=== PATIENT | male | born 1945 | race Caucasian/White ===

== ENCOUNTER 2018-01-27 17:47 | Inpatient (IN) | payer OTHER, MEDICAID ==
[~2018-01-27] VITALS: Ht 165.1 cm; Wt 83.9 kg
[2018-01-27 18:00] VITALS: BP 144/92
--- NOTE | 2018-01-27 19:06 | NUR ---
PT BROUGHT TO ED BED 6
[2018-01-27] MEDS ORDERED: fentaNYL 0.05 MG/ML VIAL IVP ONE (19:25)
[2018-01-27] MEDS ORDERED: METOCLOPRAMIDE 10 MG/2 ML INJ VIAL IVP ONE (19:25)
--- NOTE | 2018-01-27 19:27 | NUR ---
PT ADMITS N/V TODAY; SKIN IS INTACT, PINK/WARM/DRY; AAOX4, PERRL, WITH EVEN AND STEADY GAIT; LUNGS CLEAR BL, BREATHING UNLABORED; HR EVEN AND REGULAR, BL PERIPHERAL PULSES PRESENT; BS ACTIVE X4, TENDER IN LUQ TO PALPATION, NO HEPATOSPLENOMEGALLY PALPATED, RESONANT TO PERCUSSION; PT DENIES ANY FEVER, CP, SOB, OR COUGH AT THIS TIME; PT STATES 8/10 ABD PAIN AT THIS TIME; VSS; PATIENT POSITIONED FOR COMFORT; HOB ELEVATED; BEDRAILS UP X2; BED DOWN.
--- NOTE | 2018-01-27 19:48 | NUR ---
Ultrasound at bedside.
[2018-01-27 19:57] LABS: BASOPHILS # (AUTO) 0.1 K/uL (0.00-0.22); BASOPHILS % (AUTO) 1.1 % (0.0-2.0); EOSINOPHILS # (AUTO) 0.2 K/uL (0-0.4); EOSINOPHILS % (AUTO) 2.8 % (0.0-4.0); HEMATOCRIT 36.5 % (36-52); HEMOGLOBIN 11.9 g/dL (12.0-18.0); LYMPHOCYTES # (AUTO) 1.5 K/uL (2.0-11.5); MEAN CORPUSCULAR HEMOGLOBIN 30 pg (27-31); MEAN CORPUSCULAR HGB CONC 33 g/dL (33-37); MEAN CORPUSCULAR VOLUME 91.4 fL (80-94); MONOCYTES # (AUTO) 0.8 K/uL (0.8-1.0); MONOCYTES % (AUTO) 10.7 % (1.7-9.3); NEUTROPHILS # (AUTO) 4.9 K/uL (1.8-7.7); NEUTROPHILS % (AUTO) 65.4 % (42.2-75.2); PLATELET COUNT (AUTO) 219 K/uL (140-450); RED CELL DISTRIBUTION WIDTH 14.8 % (11.6-13.7); WHITE BLOOD COUNT (AUTO) 7.5 K/uL (4.8-10.8)
--- NOTE | 2018-01-27 19:59 | NUR ---
US TECH AT BEDSIDE
[2018-01-27 20:04] LABS: BILIRUBIN,URINE NEGATIVE (NEGATIVE); BLOOD, URINE NEGATIVE (NEGATIVE); LEUKOCYTE ESTERASE ,URINE NEGATIVE (NEGATIVE); NITRITE, URINE NEGATIVE (NEGATIVE); PH,URINE 7.5 (5.0-9.0); UGLUCOSE NEGATIVE (NEGATIVE)
[2018-01-27 20:05] LABS: APPEARANCE,URINE CLEAR (CLEAR); COLOR,URINE YELLOW (YELLOW)
[2018-01-27 20:20] LABS: ALBUMIN 3.4 g/dL (3.4-5.0); ANION GAP 10.2 (8-16); ASPARTATE AMINOTRANSFERASE 18 U/L (15-37); CARBON DIOXIDE 31.3 mmol/L (21-32); CHLORIDE 100 mmol/L (98-107); GLUCOSE 112 mg/dL (74-106); LIPASE 96 U/L (73-393); POTASSIUM 4.5 mmol/L (3.5-5.1); SODIUM SERUM 137 mmol/L (136-145); TOTAL BILIRUBIN 0.3 mg/dL (0.0-1.0); UREA NITROGEN, BLOOD 51 mg/dL (7-18)
[2018-01-27 20:23] LABS: CREATININE 4.6 mg/dL (0.7-1.3)
--- NOTE | 2018-01-27 20:39 | NUR ---
Dr. Stanford evaluating patient at bedside.
[2018-01-27] MEDS ORDERED: ENALAPRILAT 2.5 MG/2 ML VIAL IVP ONE (21:20)
[2018-01-27] MEDS ORDERED: MORPHINE SULFATE 4 MG/ML SYR IVP ONE (21:20)
--- NOTE | 2018-01-27 21:27 | NUR ---
medicated as per ermds order, patient tolerated well.
--- NOTE | 2018-01-27 22:49 | NUR ---
PT AMB TI BRP WITH AT SIDE. PT CONT AAOX4 AT THIS TIME
--- NOTE | 2018-01-28 00:22 | NUR ---
Patient appears to be resting comfortably in bed. Vital Signs within normal limits. Respirations even and unlabored.
[2018-01-28] MEDS ORDERED: hydrALAZINE 20 MG/ML VIAL IVP ONE (02:00)
--- NOTE | 2018-01-28 02:00 | NUR ---
ALL RESULTS BACK AND NOTED BY ERMD , AND FOR ADMISSION
[2018-01-28] MEDS ORDERED: MORPHINE SULFATE 4 MG/ML SYR IVP PRN (02:05)
[2018-01-28] MEDS ORDERED: MORPHINE SULFATE 2 MG/ML SYR IVP PRN (02:05)
[2018-01-28] MEDS ORDERED: HYDROcodone/APAP 5/325 MG 1 TAB TAB PO PRN (02:05)
[2018-01-28] MEDS ORDERED: ALBUTEROL 0.083% 2.5 MG/3 ML NEBU INH PRN (02:05)
[2018-01-28] MEDS ORDERED: hydrALAZINE 20 MG/ML VIAL IVP PRN ×2 (02:05→10:41)
[2018-01-28] MEDS ORDERED: cloNIDine 0.1 MG TAB PO PRN ×2 (02:05→10:40)
[2018-01-28] MEDS: NACL 0.9% 1,000 ML IV SCH ×2 (02:05→15:11)
--- NOTE | 2018-01-28 02:15 | NUR ---
Patient will be admitted to care of DR ROMERO. Admited to TELEMETRY. Will go to room ICU 1 Belongings list completed.
[2018-01-28] MEDS ORDERED: LOSA50TA39 PO (02:16)
[2018-01-28] MEDS ORDERED: ASPI81CT89 PO (02:16)
[2018-01-28] MEDS ORDERED: HUM7525 SUBQ (02:16)
[2018-01-28] MEDS ORDERED: GABA300C PO (02:16)
[2018-01-28] MEDS ORDERED: AMLO10TA PO (02:16)
[2018-01-28] MEDS ORDERED: SYN.075 PO (02:16)
[2018-01-28] MEDS ORDERED: ATOR20TA PO (02:16)
[2018-01-28] MEDS ORDERED: METO-485 PO (02:16)
[2018-01-28] MEDS ORDERED: FURO-570 PO (02:16)
[2018-01-28] MEDS ORDERED: CARV25TA PO (02:16)
[2018-01-28] MEDS ORDERED: DEXTROSE 50% 50 ML SYR IVP PRN (02:20)
[2018-01-28] MEDS ORDERED: INSULIN LISPRO SLIDING SCALE 100 UNITS/ML VIAL SUBQ PRN (02:20)
[2018-01-28 03:00] VITALS: BP 152/93
--- NOTE | 2018-01-28 03:00 | NUR ---
RECEIVED PT FROM ED STAFF. NO ACUTE DISTRESS NOTD
--- NOTE | 2018-01-28 03:15 | NUR ---
PT AWAKE SITTING UP IN BED WALLISIAN SPEAKING, @ BEDSIDE. PT STATES HE HAS LITTLE TO NO VISION IN R EYE, LEFT EYE 50% FUNCTION PER PATIENT. PT AMB TO BED FROM GURNEY, STEADY GAIT. LUNGS CLEAR TO AUSCULTATION. NSR 90S, +1-2 EDEMA NOTED TO BILATERAL ANKLES. ABD SOFT TENDER TO TOUCH. PT DENIES N/V @ THIS TIME. VOIDS IN URINAL. IV SITE TO L AC WITH IVF RUNNING @ 75ML/HR. NO SKIN BREAKDOWN NOTED. WILL CONTINUE TO OBSERVE.
[2018-01-28 04:00] VITALS: BP 157/92
--- NOTE | 2018-01-28 04:00 | NUR ---
PT DENIES PAIN, NAUSEA VOMITING @ THIS TIME.
[2018-01-28] MEDS ORDERED: cefTRIAXone 1,000 MG VIAL ONE (04:25)
[2018-01-28] MEDS: BLOOD GLUCOSE MONITORING 1 DEV DEV FS SCH ×4 (07:27→20:41)
--- NOTE | 2018-01-28 07:28 | NUR ---
RECEIVED REPORT FROM EDI LAO. PT AWAKE IN BED, A&0X4. PT IS ABLE TO MOVE ALL EXTREMITIES AND ABLE TO AMBULATE WITHOUT ASSISTANCE. PERRLA. LUNG SOUNDS ARE CLEAR BILATERALLY; PT IS ON ROOM AIR. PT IS NPO; BOWEL SOUNDS PRESENT AND ACTIVE IN ALL 4 QUADRANTS. PT HAS LEFT AC 20 JOANNE; 75ML/HR NS RUNNING; IV FLUSHES, PATENT, ASYMPTOMATIC. PT IS ON VICTIM ADVOCATE; NORMAL SINUS RHYTHM. PT HAS CALL LIGHT IN HIS HAND; BED IS LOCKED, IN LOWEST POSITION AND ALARM IS ON.
--- NOTE | 2018-01-28 07:28 | NUR ---
ENDORSED CARE TO DAY SHIFT FOR CONTINUITY OF CARE.
[2018-01-28] MEDS: ONDANSETRON 4 MG/2 ML VIAL IVP PRN ×3 (07:39→19:18)
[2018-01-28] MEDS: ACETAMINOPHEN 325 MG TAB PO PRN ×2 (07:41→16:15)
[2018-01-28 08:00] VITALS: BP 147/94
--- NOTE | 2018-01-28 08:50 | NUR ---
PT REQUESTED FOR SCDS TO BE TAKEN OFF
--- NOTE | 2018-01-28 09:01 | NUR ---
DR. ROMERO AT BEDSIDE ASSESSING PT. PT UPDATE GIVEN AND ORDERS RECEIVED.
--- NOTE | 2018-01-28 09:47 | NUR ---
CALLED DR. FORMAN TO NOTIFY HIM OF CONSULTATION
--- NOTE | 2018-01-28 09:48 | NUR ---
PAGED DR GILL TO NOTIFY HIM OF CONSULTATION
--- NOTE | 2018-01-28 10:00 | NUR ---
PT'S , NATHALIA, AT BEDSIDE.
--- NOTE | 2018-01-28 10:52 | NUR ---
FLORIN FROM LAB HERE FOR DAILY CBC, CMP, INR
--- NOTE | 2018-01-28 10:55 | NUR ---
PATIENT HAS BEEN SCREENED AND CATEGORIZED HIGH NUTRITION RISK. PATIENT WILL BE SEEN WITHIN 1-2 DAYS OF ADMISSION. 01/28/18 01/29/[address]
[2018-01-28 11:07] LABS: BASOPHILS # (AUTO) 0.1 K/uL (0.00-0.22); BASOPHILS % (AUTO) 0.9 % (0.0-2.0); EOSINOPHILS # (AUTO) 0.1 K/uL (0-0.4); EOSINOPHILS % (AUTO) 1.7 % (0.0-4.0); HEMATOCRIT 37.9 % (36-52); HEMOGLOBIN 12.5 g/dL (12.0-18.0); LYMPHOCYTES # (AUTO) 1.1 K/uL (2.0-11.5); LYMPHOCYTES % (AUTO) 15.1 % (20.5-51.1); MEAN CORPUSCULAR HEMOGLOBIN 30 pg (27-31); MEAN CORPUSCULAR HGB CONC 33 g/dL (33-37); MEAN CORPUSCULAR VOLUME 90.6 fL (80-94); MONOCYTES # (AUTO) 0.6 K/uL (0.8-1.0); MONOCYTES % (AUTO) 8.9 % (1.7-9.3); NEUTROPHILS # (AUTO) 5.2 K/uL (1.8-7.7); NEUTROPHILS % (AUTO) 73.4 % (42.2-75.2); PLATELET COUNT (AUTO) 228 K/uL (140-450); RED BLOOD CELL COUNT(AUTO) 4.18 MIL/uL (4.20-6.10); RED CELL DISTRIBUTION WIDTH 14.6 % (11.6-13.7)
[2018-01-28 11:34] LABS: ALBUMIN 3.3 g/dL (3.4-5.0); ANION GAP 14.1 (8-16); ASPARTATE AMINOTRANSFERASE 18 U/L (15-37); CARBON DIOXIDE 26.1 mmol/L (21-32); CHLORIDE 101 mmol/L (98-107); GLUCOSE 154 mg/dL (74-106); POTASSIUM 4.2 mmol/L (3.5-5.1); PROTHROMBIN TIME 10.4 secs (10.8-13.4); SODIUM SERUM 137 mmol/L (136-145); TOTAL BILIRUBIN 0.3 mg/dL (0.0-1.0); UREA NITROGEN, BLOOD 45 mg/dL (7-18)
[2018-01-28 11:37] LABS: CREATININE 4.3 mg/dL (0.7-1.3)
[2018-01-28 12:00] VITALS: BP 154/82
--- NOTE | 2018-01-28 12:45 | NUR ---
DR. CRUMP AT BEDSIDE EVALUATING PT.
--- NOTE | 2018-01-28 12:50 | NUR ---
Dr. Solorio has changed the nephrology consult to Dr. Krishna's office ([facility]). The pt primary Gasser Machine Operator is Dr. Painter who is in [facility]. Dr. Conde is electronic bench technician today and will see the patient
--- NOTE | 2018-01-28 12:57 | NUR ---
NUCLEAR MED HERE TO EVALUATE AND ASSESS PT. SHE WILL COME BACK IN 15 MINS TO SOFTWARE QUALITY ASSURANCE SPECIALIST PT
--- NOTE | 2018-01-28 15:02 | NUR ---
FAXED INITIAL REVIEW TO [facility] [phone] PHONE PITER [phone]
--- NOTE | 2018-01-28 15:40 | NUR ---
PT BACK FROM NUCLEAR MED TEST
[2018-01-28 16:00] VITALS: BP 148/63
--- NOTE | 2018-01-28 19:10 | NUR ---
GAVE REPORT TO ROMINA LAO FOR CONTINUATION OF JERICHO Addendum: 01/28/18 at 1934 by Violeta Rosario RN GAVE REPORT TO AMAYA LAO, FOR CONTINUATION OF CARE
--- NOTE | 2018-01-28 19:15 | NUR ---
PT IS ALERT AND ORIENTED, ABLE TO MAKE NEEDS KNOWN AND RESPOND TO COMMANDS.AFEBRILE. 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 LUNG SOUND CLEAR BILATERALLY ON AUSCULTATION. INTERMITTENT, NON PRODUCTIVE COUGH. PT IS ON ROOM AIR. SR ON UNDERCOLLAR BASTER. BOWEL SOUNDS HYPOACTIVE ON AUSCULTATION, ON CLEAR LIQUID DIET. PT STATED HAVING NAUSEA, PRN ZOFRAN ADMINISTERED. PT REFUSED MEAL DUE TO NAUSEA. 75ML NS INFUSING ON RIGHT FOREARM 20 GAUGE PIV. PT DENIES PAIN AT THIS TIME.FALL PRECAUTIONS MAINTAINED. PT IS ABLE TO REPOSITION SELF AND SIT UP AT BEDSIDE. SKIN IN INTACT, ECCYMOSIS NOTED ON LEFT HAND. CALL LIGHT WITHIN REACH, HOB ELEVATED, AND BED IN LOWEST POSITION.
--- NOTE | 2018-01-28 19:25 | NUR ---
DR. GILL AT BEDSIDE TO SEE PATIENT.
[2018-01-28 20:00] VITALS: BP 162/80
--- NOTE | 2018-01-28 20:40 | NUR ---
PRN CLONIDINE GIVEN PER ORDER, BP ELEVATED AT 172/88. WILL REASSESS AND CONTINUE TO MONITOR.
--- NOTE | 2018-01-28 21:26 | NUR ---
BP IS 135/62. REASSESSMENT OF BP AFTER CLONIDINE ADMINISTRATION.
--- NOTE | 2018-01-28 22:00 | NUR ---
PT IS SLEEPING QUIETLY.
[2018-01-29] VITALS: BP 130/70
--- NOTE | 2018-01-29 01:40 | NUR ---
250 ML URINE OUTPUT VIA URINAL. URINE IS CLEAR, YELLOW, NON-ODOROUS. CLEANSED PERINEAL AREA. PT REPOSITIONED. SCDS REMAIN OFF, PER PT REQUEST.
--- NOTE | 2018-01-29 03:40 | NUR ---
PT ABLE TO REPOSITION HIMSELF, SLEEPING QUIETLY.CALL LIGHT WITHIN REACH, HOB ELEVATED. SIDE RAILS UP. 75ML/HR NS INFUSING.
[2018-01-29 04:00] VITALS: BP 175/94
[2018-01-29] MEDS: NACL 0.9% 1,000 ML IV SCH (04:45)
--- NOTE | 2018-01-29 05:15 | NUR ---
AT PT BEDSIDE, USED OBSTETRICS SPECIALIST PHONE TO COMMUNICATE WITH PATIENT. INFORMED PT THAT SURGEON HAS NOT MADE A DECISION WHETHER TO OPERATE DUE TO THE LAB ([facility]) BEING UNCLEAR. Addendum: 01/29/18 at 18 by Priscila Jernigan RN AT PT BESIDE AT [phone]. Addendum: 01/29/18 at 521 by Priscila Jernigan RN AZERI SPEAKING OBSTETRICS SPECIALIST #[id number]
[2018-01-29] MEDS: ONDANSETRON 4 MG/2 ML VIAL IVP PRN ×2 (05:41→10:27)
[2018-01-29] MEDS: ACETAMINOPHEN 325 MG TAB PO PRN ×2 (05:54→10:23)
[2018-01-29 06:07] LABS: BASOPHILS % (AUTO) 0.6 % (0.0-2.0); EOSINOPHILS # (AUTO) 0.2 K/uL (0-0.4); EOSINOPHILS % (AUTO) 2.4 % (0.0-4.0); HEMATOCRIT 34.2 % (36-52); HEMOGLOBIN 11.3 g/dL (12.0-18.0); LYMPHOCYTES # (AUTO) 1.4 K/uL (2.0-11.5); LYMPHOCYTES % (AUTO) 19.3 % (20.5-51.1); MEAN CORPUSCULAR HEMOGLOBIN 30 pg (27-31); MEAN CORPUSCULAR HGB CONC 33 g/dL (33-37); MEAN CORPUSCULAR VOLUME 91.2 fL (80-94); MONOCYTES # (AUTO) 0.8 K/uL (0.8-1.0); MONOCYTES % (AUTO) 11.3 % (1.7-9.3); NEUTROPHILS # (AUTO) 4.7 K/uL (1.8-7.7); NEUTROPHILS % (AUTO) 66.4 % (42.2-75.2); PLATELET COUNT (AUTO) 208 K/uL (140-450); RED BLOOD CELL COUNT(AUTO) 3.75 MIL/uL (4.20-6.10); RED CELL DISTRIBUTION WIDTH 14.5 % (11.6-13.7); WHITE BLOOD COUNT (AUTO) 7.1 K/uL (4.8-10.8)
[2018-01-29 06:41] LABS: ALBUMIN 2.8 g/dL (3.4-5.0); ANION GAP 13.5 (8-16); ASPARTATE AMINOTRANSFERASE 20 U/L (15-37); CARBON DIOXIDE 24.4 mmol/L (21-32); CHLORIDE 106 mmol/L (98-107); CREATININE 3.9 mg/dL (0.7-1.3); GLUCOSE 130 mg/dL (74-106); POTASSIUM 3.9 mmol/L (3.5-5.1); SODIUM SERUM 140 mmol/L (136-145); TOTAL BILIRUBIN 0.2 mg/dL (0.0-1.0); UREA NITROGEN, BLOOD 42 mg/dL (7-18)
--- NOTE | 2018-01-29 07:20 | NUR ---
RECEIVED REPORT FROM NIGHT NURSE. PT A&Ox4. SKIN WARM DRY AND INTACT. LUNGS SOUNDS CLEAR. S1S2 HEARD. ACTIVE BOWEL SOUNDS. PATENT, ASYMPTOMATIC IV SIGHT. NO COMPLAINTS OF PAIN. NSR ON MONITOR. WILL CONTINUE TO MONITOR.
[2018-01-29] MEDS: BLOOD GLUCOSE MONITORING 1 DEV DEV FS SCH ×2 (07:30→11:32)
--- NOTE | 2018-01-29 07:33 | NUR ---
PROVIDED BEDSIDE REPORT TO MORNING SHIFT RN FOR CONTINUITY OF CARE.
[2018-01-29 08:00] VITALS: BP 169/81
--- NOTE | 2018-01-29 10:09 | NUR ---
DR MARRERO AT BEDSIDE. DISCUSSING PATIENTS KIDNEY FUNCTION WITH PATIENT AND PATIENTS FAMILY. WILL FOLLOW UP
[2018-01-29 12:00] VITALS: BP 150/82
--- NOTE | 2018-01-29 12:00 | NUR ---
DIETARY AT BEDSIDE. WILL FOLLOW UP
--- NOTE | 2018-01-29 14:40 | NUR ---
FAXED CONCURRENT REVIEW AND PROGRESS NOTE TO [facility] [phone] PHONE [phone] PITER
--- NOTE | 2018-01-29 14:45 | NUR ---
FAXED DISCHARGE SUMMARY TO [facility] [phone].
--- NOTE | 2018-01-29 15:00 | NUR ---
PATIENT D/C FROM HOSPITAL. PATIENT LEFT WITH FAMILY. PATIENT ALERT AND STABLE AT TIME OF DISCHARGE. NO COMPLAINTS OF PAIN. ALL PERSONAL BELONGINGS WITH PATIENT. ID BAND REMOVED. IV REMOVED. PT STATED UNDERSTANDING ABOUT DISCHARGE INSTRUCTIONS AND FOLLOW UP APPOINTMENTS. PATIENTS SON AND WITH PATIENT WHEN HE LEFT. THEY ALSO VERBALIZED UNDERSTANDING. PT WALKED OUT ON OWN WITH STEADY GAIT.
== END 2018-01-29 15:00 | disposition home or self-care (01) | DRG 445 ==
LOC: MED 17:47 → MIC 01-28 02:32
PROVIDERS: ADMIT Hospitalist; ATTEND Hospitalist
DX: K80.20 Calculus of gallbladder without cholecystitis without obstruction (principal); I12.0 Hypertensive chronic kidney disease with stage 5 chronic kidney disease or end stage renal disease; N18.5 Chronic kidney disease, stage 5; E11.319 Type 2 diabetes mellitus with unspecified diabetic retinopathy without macular edema; E11.22 Type 2 diabetes mellitus with diabetic chronic kidney disease; E11.51 Type 2 diabetes mellitus with diabetic peripheral angiopathy without gangrene; E78.00 Pure hypercholesterolemia, unspecified; M19.90 Unspecified osteoarthritis, unspecified site; K21.9 Gastro-esophageal reflux disease without esophagitis; E78.5 Hyperlipidemia, unspecified; E66.01 Morbid (severe) obesity due to excess calories; M10.9 Gout, unspecified; Z82.49 Family history of ischemic heart disease and other diseases of the circulatory system; Z83.3 Family history of diabetes mellitus; Z90.49 Acquired absence of other specified parts of digestive tract; Z68.30 Body mass index [BMI] 30.0-30.9, adult
CPT/HCPCS: 36415; 76705; 78223; 80053; 81003; 82150; 82948; 83605; 83690; 85025; 85610; 87040; 87081; J0360; J0696; J1815; J2270; J2405; J2765; J3010; J3490; J7030; J7060; Q0092